=== PATIENT | male | born 1975 | race Caucasian/White ===

== ENCOUNTER 2025-01-27 14:31 | Emergency (ER) | payer MEDICARE, MEDICAID, SELFPAY ==
--- NOTE | ~2025-01-27 | XR_ITS ---
CLINICAL HISTORY: ? fx AP pelvis, 2 views of the left hip. COMPARISON: None FINDINGS: Pelvic ring appears intact. Pelvic phleboliths present. Visualized lower lumbar spine is unremarkable. Visualized portions of the contralateral right hip appear intact. Left hip: Visualized portions of the proximal left femur appears intact. No trabecular disruption or cortical discontinuity. Femoral head is appropriately seated within the acetabulum. There is decreased acetabular angle although this likely secondary to patient rotation. IMPRESSION: 1. No radiographic evidence of acute injury to the pelvis and left hip. This document has been electronically signed by: Justin Gongora MD on 01/27/2025 17:50:26
--- NOTE | ~2025-01-27 | US_ITS ---
CLINICAL HISTORY: leg swelling Venous duplex ultrasound left lower extremity COMPARISON: None FINDINGS: The visualized deep veins are fully compressible with normal Doppler color flow and spectral tracings. Veins of the left calf were not visualized. No popliteal cyst. IMPRESSION: 1. Negative for left lower extremity deep vein thrombosis. This document has been electronically signed by: Justin Gongora MD on 01/27/2025 18:26:41
--- NOTE | ~2025-01-27 | XR_ITS ---
CLINICAL HISTORY: ? fx Three views of the left knee. COMPARISON: None FINDINGS: No suprapatellar joint effusion. Decreased medial and lateral joint spaces. Small osteophytes present along the patellofemoral compartment. Visualized portions of the distal femur, patella, and proximal tibia and fibula appear intact. IMPRESSION: 1. No radiographic evidence of acute injury to the left knee. 2. Mild degenerative changes of the left knee. This document has been electronically signed by: Justin Gongora MD on 01/27/2025 17:51:08
--- NOTE | ~2025-01-27 | XR_ITS ---
CLINICAL HISTORY: ? fx Three views of the left ankle. COMPARISON: None FINDINGS: Osteopenia. No ankle joint effusion. Talocalcaneal arthrodesis hardware present. No evidence of hardware loosening or failure. Ankle mortise appears symmetric on non-stressed views. Talar dome appears intact. Distal tibia and fibula appear intact. Remaining tarsal bones appear intact. IMPRESSION: 1. No radiographic evidence of acute injury to the left ankle. 2. Anatomic alignment of talocalcaneal arthrodesis hardware without evidence of hardware complication. This document has been electronically signed by: Justin Gongora MD on 01/27/2025 17:53:24
[2025-01-27 14:42] VITALS: BP 112/88; PULSE 76; O2SAT 96
[2025-01-27 14:58] VITALS: BP 90/58; PULSE 76; RESP 16; TEMP 36.4; O2SAT 95; BMI 26.1
--- NOTE | 2025-01-27 16:25 | ED.EXTPRO ---
HPI - Extremity Problem General Chief complaint: Extremity Problem Stated complaint: LLE SWELLING PER EMS Time Seen by Provider: 01/27/25 15:09 History of Present Illness HPI Narrative: patient is a 49-year-old male presented today with having left lower extremity swelling ongoing for few weeks patient unable to give detailed history being a nonverbal quadriplegic. Sent in for further evaluation. Related Data Allergies Allergy/AdvReac Type Severity Reaction Status Date / Time No Known Allergies Allergy Verified 01/27/25 15:02 Review of Systems Review of Systems: Unable to obtain review of systems secondary to patient's condition [facility] Past Medical History Source: unable to obtain Social History Social History Smoked in Last 30 Days: No Use of substances other than those prescribed or required for medical reasons: No Advance Directives: No Advance Directives Information Provided: No Do you have a plan to hurt others: No Plan Physical Exam Vital Signs: Vital Signs: Last Vital Signs Temp 97.5 F 01/27/25 14:58 Pulse 76 01/27/25 14:58 Resp 16 01/27/25 14:58 BP 90/58 L 01/27/25 14:58 Pulse Ox 95 01/27/25 14:58 O2 Del Method Room Air 01/27/25 14:58 BMI result Body Mass Index 26.1 Appearance: Alert. oriented times 0 Eyes: Pupils equal, round and reactive to light. Neck: Normal inspection. Neck supple. No lymph nodes noted. No crepitus CVS: Normal heart rate and rhythm. Pulses normal. Normal S1 and S2 Respiratory: No respiratory distress. Breath sounds normal. No Wheezing. No rales Abdomen: Soft and nontender. No rigidity. No distention. good BS x4 Skin: Skin warm and dry. Normal skin color. Normal skin turgor. Extremities: Positive swelling to the left lower extremity. Neurovascular intact to all extremities. No Lacerations. No Rash Neuro: Oriented X 0 contracted. Left lower extremity appears to be swollen. When compared to the right it is at least 3 cm larger. There is no redness. There is no tenderness on palpation. There is good distal pulses. Medical Decision Making Medical Decision Making MDM Narrative: patient baseline quadriplegic. Mentally challenged. Complaining of left-sided leg swelling. My interpretation of patient's x-ray of the ankle x-ray did knee x-ray the hip were all grossly negative. I reviewed radiology's reading of the down left lower extremity which was negative for any acute evidence of DVT. Patient well-appearing no acute distress. White count is normal there is no rash suggest patient has cellulitis patient BNP is less than 10 there is no evidence for congestive heart failure will discharge patient home close follow-up on an outpatient basis. Differential Diagnosis Differential Diagnoses: The differential diagnosis associated with the presentation includes DVT, infection, cellulitis, leg swelling Admission/Observation Consideration of admission/observation: Escalation of care including admission/observation considered Lab Data MDM Lab Attestation statement: I reviewed the patient's lab results. 01/27/25 16:50 01/27/25 16:50 Labs: Lab Results 01/27/25 Range/Units 16:50 WBC 7.8 (4.8-10.8) X10*3/uL RBC 5.09 (4.60-5.80) X10*6/uL Hgb 15.4 (14.0-18.0) g/dl Hct 45.5 (42.0-52.0) % MCV 89.4 (80.0-98.0) fL MCH 30.3 (27.0-33.0) pg MCHC 33.8 (31.0-36.0) g/dl RDW 12.1 (11.0-16.0) % Plt Count 174 (160-400) X10*3/uL MPV 9.7 (9.4-12.4) fL Immature Gran % (Auto) 0.4 (0.0-0.4) % Neut % (Auto) 52.5 (45-73) % Lymph % (Auto) 34.3 (20-40) % Swain % (Auto) 8.9 (2-11) % Eos % (Auto) 3.0 (0-4) % Baso % (Auto) 0.9 (0-2) % Lymph # (Auto) 2.7 (1.2-4.9) X10*3/uL Swain # (Auto) 0.7 (0.1-1.2) X10*3/uL Eos # (Auto) 0.2 (0.0-0.4) X10*3/uL Baso # (Auto) 0.1 (0.0-0.2) X10*3/uL Abs Immat Gran (auto) 0.03 (0.00-0.03) X10*3/uL Absolute Neuts (auto) 4.1 (2.0-8.3) x10*3/uL Absolute Nucleated RBC 0.000 (0.0-0.012) X10*3/uL Nucleated RBC % (auto) 0.0 (0.0-0.2) /100WBC Sodium 142 (135-145) mmol/L Potassium 4.1 (3.3-5.1) mmol/L Chloride 107 (96-108) mmol/L Carbon Dioxide 29 (22-29) mmol/L Anion Gap 10 L (12-20) BUN 12 (9-16) mg/dL Creatinine 0.64 (0.5-1.4) mg/dL Estim Creat Clear Calc 97.4 Estimated GFR > 60 Random Glucose 102 (60-115) mg/dL Calcium 9.2 (8.4-10.2) mg/dL B-Natriuretic Peptide < 10 (<100) pg/mL Independent Interpretation I performed an independent interpretation of an: Plain X-Ray ( no acute fracture noted in the ankle knee or hip film) Radiology Impression Discussion of test interpretation with radiology: I have reviewed the radiologist's reading. Radiologist Impression: I reviewed radiology's reading of the x-ray and also Doppler ultrasound Social Determinants Patient?s care significantly limited by Social Determinants of Health including: Problems related to primary support group Discharge Plan Discharge Clinical Impression: Lower extremity edema Patient Disposition: Home, Self-Care Instructions: Leg Edema (ED) Referrals: Physician,Unknown J [Primary Care Provider] - 01/29/25 Print Language: Romansh
[2025-01-27 16:54] LABS: MANUAL DIFF FLAG NO
[2025-01-27 16:59] LABS: Basophils Absolute Auto 0.1 X10*3/uL (0.0-0.2); Basophils Percent Auto 0.9 % (0-2); Eosinophils Absolute Auto 0.2 X10*3/uL (0.0-0.4); Hematocrit 45.5 % (42.0-52.0); Hemoglobin 15.4 g/dl (14.0-18.0); Imm Gran Abs Auto 0.03 X10*3/uL (0.00-0.03); Imm Gran Pct Auto 0.4 % (0.0-0.4); Lymphocytes Absolute Auto 2.7 X10*3/uL (1.2-4.9); Lymphocytes Percent Auto 34.3 % (20-40); Mean Corpuscular HGB Conc 33.8 g/dl (31.0-36.0); Mean Corpuscular Hemoglobin 30.3 pg (27.0-33.0); Mean Corpuscular Volume 89.4 fL (80.0-98.0); Mean Platelet Volume 9.7 fL (9.4-12.4); Monocytes Absolute Auto 0.7 X10*3/uL (0.1-1.2); Monocytes Percent Auto 8.9 % (2-11); Neutrophils Absolute Auto 4.1 x10*3/uL (2.0-8.3); Neutrophils Percent Auto 52.5 % (45-73); Platelet Count 174 X10*3/uL (160-400); Red Blood Count 5.09 X10*6/uL (4.60-5.80); Red Cell Distribution Width 12.1 % (11.0-16.0); White Blood Count 7.8 X10*3/uL (4.8-10.8)
[2025-01-27 17:12] LABS: Anion Gap 10 (12-20); Blood Urea Nitrogen 12 mg/dL (9-16); Calcium 9.2 mg/dL (8.4-10.2); Carbon Dioxide 29 mmol/L (22-29); Chloride 107 mmol/L (96-108); Creatinine Clr Calc Pharmacy 97.4; Estimated Glomerular Filt Rate > 60; Glucose Random 102 mg/dL (60-115); Potassium 4.1 mmol/L (3.3-5.1); Sodium 142 mmol/L (135-145)
[2025-01-27 17:17] LABS: B Type Natriuretic Peptide < 10 pg/mL (<100)
[2025-01-27 19:26] VITALS: BP 120/73; PULSE 75; RESP 16; TEMP 36.2; O2SAT 95
[2025-01-27 19:37] VITALS: BP 120/73; PULSE 75; RESP 16; TEMP 36.2; O2SAT 95
== END 2025-01-27 19:39 | disposition home or self-care (01) ==
PROVIDERS: Emergency Provider Emergency Medicine Emergency Medical Services
DX: R60.0 Localized edema (principal)
CPT/HCPCS: 36415; 73502; 73562; 73600; 80048; 83880; 85025; 93971; 99284